=== PATIENT | female | born 1965 | race Caucasian/White ===

== ENCOUNTER 2019-08-09 07:11 | Day surgery (SDC) | payer OTHER ==
[~2019-08-09] VITALS: Ht 162.6 cm; Wt 84.1 kg
[2019-08-09 08:11] VITALS: BP 139/80; PULSE 75; TEMP 98
[2019-08-09 10:10] VITALS: BP 113/55; PULSE 75; TEMP 97.8
--- NOTE | 2019-08-09 10:10 | NUR ---
Pt returned via cart to [facility] bay 3. Pt drowsy. SBA with ambulation to recliner in bay. Warm blankets given and call light in reach. VSS-see flowsheet. Denies pain or nausea. Reports headache and requested coffee and jello. Dr Kebede in to visit with pt and spouse at this time.
[2019-08-09 10:25] VITALS: BP 109/70; PULSE 72
[2019-08-09 10:40] VITALS: BP 116/67; PULSE 76
--- NOTE | 2019-08-09 11:00 | NUR ---
Pts VS remain stable. Tolerated coffee and jello, denies pain or nausea. IV removed and pressure dressing applied. Pt dressed and discharge teaching completed. Pt and spouse verbalized understanding. Taken via wheelchair to private vehicle for dc home with spouse driving.
== END 2019-08-09 11:00 | disposition home or self-care (01) ==
LOC: SDCO 07:11
DX: Z12.11 Encounter for screening for malignant neoplasm of colon (principal); Z88.6 Allergy status to analgesic agent
CPT/HCPCS: J2250; J2405; J3010; J7030

== ENCOUNTER → 2019-09-11 | Outpatient (CLI) | payer OTHER | LOC: MC.RAD 08:46 | DX: Z12.31 Encounter for screening mammogram for malignant neoplasm of breast (principal) ==